=== PATIENT | female | born 1985 | race Caucasian/White ===

== ENCOUNTER 2016-07-01 11:07 | Emergency (ER) | payer OTHER ==
[~2016-07-01] VITALS: Ht 157.5 cm; Wt 73.2 kg
[~2016-07-01 11:07] MED LIST: ACET1TAB40 PO; ACET500T98 PO; AMO500 PO; CIPR500T4 PO; ERYT1OIN6 BOTH EYES; HYDR-3010; IBUP200C PO; METH4TAB; NAPH15DR22 BOTH EYES; UDROBDM PO; [UNRECOGNIZED DRUG - CODE]
[2016-07-01 11:20] VITALS: Ht 157.5 cm; Wt 73.2 kg
--- NOTE | 2016-07-01 13:21 | RADRPT ---
PROCEDURE: XR Left Foot CLINICAL INDICATION: Pain and swelling TECHNIQUE: AP, oblique, and lateral radiographs were submitted. COMPARISON: None FINDINGS: Osseous structures: appear well mineralized and intact with no fracture or destructive process iden tified. Joint spaces: are well maintained, with no significant spurring, erosion or joint effusion evident. Soft tissues: appear unremarkable. IMPRESSION: Unremarkable left foot. Physician Dilia Date Time Electronically viewed and signed by Physician Dilia on 07/01/2016 13:20 /
[2016-07-01] MEDS ORDERED: ELIM TOP (13:24)
[2016-07-01] MEDS ORDERED: IBUP400T22 PO (13:25)
--- NOTE | 2016-07-01 13:40 | ERD ---
ER Documentation Chief Complaint Date/Time DATE: 07/01/16 TIME: 13:37 Chief Complaint left foot pain x 3 days HPI This is a 30-year-old female who states that she demonstrates presenting to emergency room complaining of left foot pain for the past 3 days. She states that the pain is moderate in severity, she admits to having some mild swelling. She also states that there is lesions on both of her feet that are itchy. She denies any trauma, fevers, denies any and medication of this ROS All systems reviewed and are negative except as per history of present illness. Medications Home Meds Active Scripts Ibuprofen* (Ibuprofen*) 400 Mg Tablet, 400 MG PO Q6H Y for PAIN, #30 TAB Prov:NITIN ELLIOTT PA-C 07/01/16 Permethrin* (Elimite*) 5% Cr, 1 APPLIC TOP ONCE, #1 TUB Prov:NITIN ELLIOTT PA-C 07/01/16 Ciprofloxacin Hcl* (Ciprofloxacin Hcl*) 500 Mg Tablet, 500 MG PO BID for 5 Days , TAB Prov:LIMA MURGUIA DO 07/04/15 Acetaminophen-Codeine* (Acetaminophen-Cod #3*) 300-30 Mg Tab, 1 TAB PO Q4H Y for PAIN, #10 TAB Prov:GÓMEZ FLORES NP 05/23/15 Amoxicillin* (Amoxicillin*) 500 Mg Cap, 500 MG PO TID for 10 Days, CAP Prov:GÓMEZ FLORES NP 05/23/15 Guaifenesin-Dextromethorphan* (Robitussin* DM) 100MG/10MG/5ML Syrup, 5 ML PO Q6H Y for COUGH, #240 ML 0 Refills Prov:JAVIER DELANEY PA-C 04/05/15 Acetaminophen (Tylenol) 500 Mg Tab, 500 MG PO Q6, #30 TAB 0 Refills Prov:JAVIER DELANEY PA-C 04/05/15 Ibuprofen* (Ibuprofen*) 200 Mg Capsule, 200 MG PO Q6, #30 CAP 0 Refills Prov:JAVIER DELANEY PA-C 04/05/15 Amoxicillin* (Amoxicillin*) 500 Mg Cap, 500 MG PO TID, #21 CAP 0 Refills Prov:JAVIER DELANEY PA-C 04/05/15 Erythromycin (Erythromycin Opth) 3.5 Gm Oint..gm., 1 APPLIC BOTH EYES BID, #1 TUB Prov:LIMA MURGUIA. DO 01/14/15 Naphazoline-Pheniramine* (Visine-A*) 15 Ml Drops, 2 DROP BOTH EYES Q4H Y for ITCHING, #1 EA Prov:LIMA MURGUIA. DO 01/14/15 Reported Medications Methylprednisolone (Methylprednisolone) 4 Mg Tablet 09/09/09 Hydroxyzine Hcl* (Hydroxyzine Hcl*) 10 Mg Tablet 09/06/09 Betamethasone Dipropionate* (Diprosone*) 15 Gm Cr 09/06/09 Allergies Allergies: Coded Allergies: No Known Drug Allergies (Verified Allergy, Mild, 07/06/14) PMhx/Soc History of Surgery: No Anesthesia Reaction: No Hx Neurological Disorder: No Hx Respiratory Disorders: No Hx Cardiac Disorders: No Hx Psychiatric Problems: Yes (PTSD, ANXIETY) Hx Miscellaneous Medical Probl: No Hx Alcohol Use: Yes (Social) Hx Substance Use: Yes (Marijuana, METH) Hx Tobacco Use: Yes (1PACK/DAY) Smoking Status: Current every day smoker Physical Exam Vitals Vital Signs Date Time Temp Pulse Resp B/P Pulse Ox O2 Delivery O2 Flow Rate FiO2 07/01/16 11:20 98.6 68 19 142/67 98 Physical Exam General: WD/WN, in no apparent distress, non-toxic appearing HENT: NC/AT Eyes: Conjunctiva normal Neck: Supple Pulm: Clear to auscultation, normal labored breathing; no wheezing/rales/ rhonchi heard CV: Good capillary refill GI: Non-distended, no guarding Back: No masses Ext: Tenderness palpation over the left foot, no erythema or induration noted. Neuro: Moves on all fours Skin: Erythematous papules on bilateral feet Psych: Normal mood Procedures/MDM This is a 30-year-old female who states that she is living [place] the streets at this moment presenting to the emergency department complaining of left foot pain for the past 3 days, this is likely sprain. No evidence of any fracture dislocation. An x-ray was done in the ED and states that it was unremarkable. In addition patient had erythematous papules on bilateral feet that were itchy, this is likely scabies versus bed mites. Patient is on a stable and neurovascular intact for discharge her home with precautions to return to the ER for any worsening signs or symptoms. Prescription for ibuprofen and permethrin have been provided. I discussed the follow-up with primary care physician. Patient understood and agree with plan Departure Diagnosis: Primary Impression: Foot pain Additional Impression: Scabies Condition: Stable Patient Instructions: Scabies, Sprain Foot Additional Instructions: FOLLOW UP WITH YOUR PRIMARY CARE PHYSICIAN TOMORROW.Return to this facility if you are not improving as expected. Take all medicines as directed. Return to this facility if you are not improving as expected. NITIN ELLIOTT PA-C July 01, 2016 13:40
== END 2016-07-01 14:14 | disposition home or self-care (01) ==
LOC: FTE 11:07
DX: M79.672 Pain in left foot (principal); B86 Scabies; F17.210 Nicotine dependence, cigarettes, uncomplicated
CPT/HCPCS: 73630; Z7502